=== PATIENT | female | born 1985 | race Two or more races ===

== ENCOUNTER 2019-12-05 18:40 | Emergency (ER) | payer OTHER ==
[~2019-12-05] VITALS: Ht 157.5 cm; Wt 61.2 kg
[2019-12-05 21:44] VITALS: BP 114/66
== END 2019-12-05 22:11 | disposition home or self-care (01) ==
LOC: ER 18:43
DX: L50.9 Urticaria, unspecified (principal); L29.9 Pruritus, unspecified